=== PATIENT | female | born 1935 | race Two or more races ===

== ENCOUNTER 2023-03-17 10:37 | Emergency (ER) | payer OTHER ==
[~2023-03-17] VITALS: Ht 152.4 cm; Wt 54.4 kg
[2023-03-17] MEDS ORDERED: CRESTOR10 MG (11:10)
[2023-03-17] MEDS ORDERED: ZETIA10 MG (11:10)
[2023-03-17] MEDS ORDERED: ENTRESTO 24 MG1 EACH (11:10)
[2023-03-17] MEDS ORDERED: PLAVIX75 MG (11:11)
[2023-03-17] MEDS ORDERED: TORSEMIDE5 MG (11:11)
[2023-03-17] MEDS ORDERED: JARDIANCE10 MG (11:11)
[2023-03-17] MEDS ORDERED: CARVEDILOL ER40 MG (11:11)
[2023-03-17] MEDS ORDERED: ALDACTONE25 MG (11:11)
[2023-03-17] MEDS ORDERED: OMEGA 3 1,0001 EACH (11:12)
== END 2023-03-17 14:44 ==
LOC: ER 10:37
DX: I99.8 Other disorder of circulatory system (principal); Z88.6 Allergy status to analgesic agent; I10 Essential (primary) hypertension; G62.9 Polyneuropathy, unspecified; E11.9 Type 2 diabetes mellitus without complications; E78.00 Pure hypercholesterolemia, unspecified; Z85.89 Personal history of malignant neoplasm of other organs and systems